=== PATIENT | female | born 1970 | race Caucasian/White ===

== ENCOUNTER 2022-12-19 07:31 | Day surgery (SDC) | payer OTHER ==
[~2022-12-19] VITALS: Ht 154.9 cm; Wt 65.8 kg
[2022-12-19] MEDS ORDERED: diphenhydrAMINE 50 MG/ML VIAL ONE (08:19)
[2022-12-19] MEDS ORDERED: fentaNYL citrate 0.05 MG/ML VIAL ONE (08:20)
[2022-12-19] MEDS ORDERED: MIDAZOLAM 5 MG/5 ML VIAL ONE (08:20)
[2022-12-19] MEDS ORDERED: MIDAZOLAM 2 MG/2 ML VIAL IVP ONE (14:25)
[2022-12-19] MEDS ORDERED: fentaNYL citrate 0.05 MG/ML VIAL IVP ONE (14:25)
== END 2022-12-19 09:55 | disposition home or self-care (01) ==
LOC: MOR 07:31 → MMU 07:32 → MOR 09:55
PROVIDERS: ATTEND Internal Medicine Gastroenterology
DX: Z12.11 Encounter for screening for malignant neoplasm of colon (principal); R09.89 Other specified symptoms and signs involving the circulatory and respiratory systems; K29.50 Unspecified chronic gastritis without bleeding; I10 Essential (primary) hypertension; E78.5 Hyperlipidemia, unspecified; E11.9 Type 2 diabetes mellitus without complications; F32.A Depression, unspecified; Z79.84 Long term (current) use of oral hypoglycemic drugs; Z79.899 Other long term (current) drug therapy
CPT/HCPCS: 43239; 45378; 82948; 88305; 88312; 88313; 88342; J2250; J3010; J1200